=== PATIENT | female | born 2000 | race Two or more races ===

== ENCOUNTER 2021-01-25 22:48 | Emergency (ER) | payer OTHER ==
[~2021-01-25] VITALS: Ht 170.2 cm; Wt 63.5 kg
[2021-01-25 22:48] VITALS: BP 136/82
[2021-01-25] MEDS ORDERED: AMOX-430 PO (22:57)
[2021-01-25] MEDS ORDERED: AMOX/CLAVULANATE 875 MG TABLET PO ONE (23:00)
[2021-01-25] MEDS ORDERED: AMOX/CLAVULANATE 875 MG TABLET ONE (23:00)
--- NOTE | 2021-01-25 23:08 | NUR ---
Patient discharged to home in stable condition. Written and verbal after care instructions given. Patient verbalizes understanding of instruction.pt. ambulatory with a steady gait
== END 2021-01-25 23:08 | disposition home or self-care (01) ==
LOC: ER 23:03
DX: S61.231A Puncture wound without foreign body of left index finger without damage to nail, initial encounter (principal); Z79.899 Other long term (current) drug therapy; W55.01XA Bitten by cat, initial encounter; Y93.89 Activity, other specified; Y92.89 Other specified places as the place of occurrence of the external cause; Y99.8 Other external cause status
CPT/HCPCS: 99283; A6403

== ENCOUNTER 2021-02-08 16:08 | Emergency (ER) | payer OTHER ==
[~2021-02-08] VITALS: Ht 170.2 cm; Wt 66.2 kg
[~2021-02-08 16:08] MED LIST: AMOX-430 PO
[2021-02-08 16:23] VITALS: BP 107/71
--- NOTE | 2021-02-08 16:25 | NUR ---
The PATIENT BIB FOR C/O L INDEX FINGER PAIN FROM A CAT BITE AT WORK. UTD W/ TETANUS SHOT. NO BLEEDING OR DISCHARGE FROM THE SITE NOTED.THE PATIENT DENIES PAIN AT THIS TIME. IN ROOM AIR AND DENIES SOB. RESPIRATION REGULAR AND UNLABORED. WILL CONTINUE TO MONITOR THE PATIENT.
[2021-02-08] MEDS ORDERED: AMOX-430 PO (17:30)
--- NOTE | 2021-02-08 18:13 | NUR ---
Patient discharged to home in stable condition. Written and verbal after care instructions given. Patient verbalizes understanding of instruction. The patient left the ER in stable condition.
== END 2021-02-08 23:00 | disposition home or self-care (01) ==
LOC: ER 16:08
DX: S60.022A Contusion of left index finger without damage to nail, initial encounter (principal); W55.01XA Bitten by cat, initial encounter; Y93.89 Activity, other specified; Y92.89 Other specified places as the place of occurrence of the external cause; Y99.0 Civilian activity done for income or pay